=== PATIENT | female | born 1945 | race Two or more races ===

== ENCOUNTER 2018-11-07 10:48 | Emergency (ER) | payer MEDICARE ==
[~2018-11-07] VITALS: Ht 154.9 cm; Wt 68.0 kg
[2018-11-07 10:48] VITALS: BP 103/63
[2018-11-07] MEDS ORDERED: NITR100C62 PO (11:34)
[2018-11-07] MEDS ORDERED: PHEN100T82 PO (11:34)
--- NOTE | 2018-11-07 11:34 | PHYS DOC ---
Past History Past Medical History: Diabetes, Other Additional Past Medical Histor: kidney failure secondary to Bactrim Smoking: Non-smoker Alcohol Use: None Drug Use: None Adult General Chief Complaint Chief Complaint: PAIN ON URINATION HPI HPI Patient is a 73-year-old female presents with dysuria that began this morning. She was started on Keflex October 23, 2018 due to urinary tract infection while in [place]. She has finished the antibiotic a couple of days ago. She denies any fever or flank pain. No nausea or vomiting. No vaginal discharge. She notes that there is increased urgency and frequency. She has taken no medicine help with the current discomfort.[] Review of Systems Review of Systems Constitutional: Denies fever or chills [] Eyes: Denies change in visual acuity, redness, or eye pain [] HENT: Denies nasal congestion or sore throat [] Respiratory: Denies cough or shortness of breath [] Cardiovascular: No chest pain or palpitations[] GI: Denies abdominal pain, nausea, vomiting, bloody stools or diarrhea [] : See history of present illness, there is some pink she noted on the toilet paper when wiping after urinating.[] Musculoskeletal: Denies back pain or joint pain [] Integument: Denies rash or skin lesions [] Neurologic: Denies headache, focal weakness or sensory changes [] Endocrine: Denies polyuria or polydipsia [] All other systems were reviewed and found to be within normal limits, except as documented in this note. Allergies Allergies Allergies Coded Allergies Type Severity Reaction Last Updated Verified sulfamethoxazole Allergy Severe 11/07/18 Yes trimethoprim Allergy Severe 11/07/18 Yes codeine Allergy Unknown 11/07/18 Yes latex Allergy Unknown 11/07/18 Yes Uncoded Allergies Type Severity Reaction Last Updated Verified excedrin Allergy Severe 11/07/18 Physical Exam Physical Exam Constitutional: Well developed, well nourished, no acute distress, non-toxic appearance. [] HENT: Normocephalic, atraumatic, bilateral external ears normal, oropharynx moist, no oral exudates, nose normal. [] Eyes: PERRLA, EOMI, conjunctiva normal, no discharge. [] Neck: Normal range of motion, no tenderness, supple, no stridor. [] Cardiovascular:Heart rate regular rhythm, no murmur [] Lungs & Thorax: Bilateral breath sounds clear to auscultation [] Abdomen: Bowel sounds normal, soft, no tenderness, no masses, no pulsatile masses. [] Skin: Warm, dry, no erythema, no rash. [] Back: No tenderness, no CVA tenderness. [] Extremities: No tenderness, no cyanosis, no clubbing, ROM intact, no edema. [] Neurologic: Alert and oriented X 3, normal motor function, normal sensory function, no focal deficits noted. [] Psychologic: Affect normal, judgement normal, mood normal. [] EKG EKG [] Radiology/Procedures Radiology/Procedures [] Course & Med Decision Making Course & Med Decision Making Pertinent Labs and Imaging studies reviewed. (See chart for details) ED course: Patient arrived, was placed in bed, and tolerated exam well. She was able to provide a urine sample. Findings were discussed with the patient and family who voiced understanding. All questions were answered. She was discharged in improved condition. Medical decision making: Patient with urinary tract infection he just finished cephalexin. Will prescribe Macrobid given her sulfa allergy. There is no evidence of pyelonephritis nor systemic toxicity.[] Dragon Disclaimer Dragon Disclaimer This electronic medical record was generated, in whole or in part, using a voice recognition dictation system. Departure Departure: Impression: Primary Impression: Urinary tract infection Disposition: 01 HOME, SELF-CARE Condition: IMPROVED Patient Instructions: Urinary Tract Infection Additional Instructions: Drink plenty of fluids. Take the medication as prescribed. Return to the emergency department if worsening discomfort, fever of more than 101�, or any other concerns. Scripts Phenazopyridine Hcl (PYRIDIUM) 100 Mg Tablet 100 MG PO TID for dysuria for 2 Days, #6 TAB Prov: RAYNA VENEGAS DO 11/07/18 Nitrofurantoin Monohyd/M-Cryst (MACROBID 100 MG CAPSULE) 100 Mg Capsule 1 CAP PO BID for urinary tract infection, #20 CAP Prov: RAYNA VENEGAS DO 11/07/18 Problem Qualifiers Primary Impression: Urinary tract infection Urinary tract infection type: site unspecified Hematuria presence: with hematuria Qualified Codes: N39.0 - Urinary tract infection, site not specified; R31.9 - Hematuria, unspecified RAYNA VENEGAS DO Nov 07, 2018 11:34
== END 2018-11-07 11:30 | disposition home or self-care (01) ==
LOC: ER 10:48
DX: N39.0 Urinary tract infection, site not specified (principal); R31.9 Hematuria, unspecified; E11.9 Type 2 diabetes mellitus without complications; Z88.2 Allergy status to sulfonamides; Z88.1 Allergy status to other antibiotic agents; Z88.5 Allergy status to narcotic agent; Z91.040 Latex allergy status
CPT/HCPCS: 87086; 99283